=== PATIENT | male | born 1985 | race Caucasian/White ===

== ENCOUNTER 2016-11-06 13:27 | Emergency (ER) | payer OTHER ==
[~2016-11-06 13:27] MED LIST: ALBUTEROL17 GM INH; ASTHMACORT; BACTRIM DS TABL1 TAB PO; IBUPROFEN800 MG PO; NO MEDICATIONS; PREDNISONE10 MG PO; VICODIN 5/500 T1 TAB PO
== END 2016-11-06 14:34 | disposition home or self-care (01) ==
LOC: SED 13:27
DX: L02.414 Cutaneous abscess of left upper limb (principal); F17.210 Nicotine dependence, cigarettes, uncomplicated; J45.909 Unspecified asthma, uncomplicated
CPT/HCPCS: 10060; 87070; 87186; 87205; 99283